=== PATIENT | female | born 1995 | race Caucasian/White ===

== ENCOUNTER 2017-06-29 16:43 | Inpatient (IN) | payer MEDICAID ==
[~2017-06-29] VITALS: Ht 162.6 cm; Wt 94.0 kg
[2017-06-29] MEDS ORDERED: normal saline 1000ML IV soln IVB ONE (17:20)
[2017-06-29 17:39] LABS: BASOPHILS % (AUTO) 0 % (0-1); EOSINOPHILS % (AUTO) 0 % (0-6); HEMATOCRIT 39.4 % (35.0-45.0); HEMOGLOBIN 13.3 g/dl (12.0-16.0); LYMPHOCYTES # (AUTO) 1.2 X10'3 (1.1-4.8); LYMPHOCYTES % (AUTO) 7.3 % (21-51); MEAN CORPUSCULAR HEMOGLOBIN 26.6 PG (27.0-31.0); MEAN CORPUSCULAR HGB CONC 33.8 % (33.0-36.5); MEAN CORPUSCULAR VOLUME 78.6 FL (78-98); MEAN PLATELET VOLUME 8.8 FL (7.4-10.4); MONOCYTES # (AUTO) 0.5 X10'3 (0-0.9); MONOCYTES % (AUTO) 3.3 % (2-12); NEUTROPHILS # (AUTO) 14.4 X10'3 (1.8-7.7); NEUTROPHILS % (AUTO) 89.4 % (42-75); PLATELET COUNT 385 X10'3 (140-440); RED BLOOD COUNT 5.01 X10'6 (4.20-5.60); RED CELL DISTRIBUTION WIDTH 16.2 % (11.5-14.5); WHITE BLOOD COUNT 16.1 X10'3 (4.5-11.0)
[2017-06-29 17:46] LABS: PROTHROMBIN TIME 10.7 SECONDS (9.0-12.0)
[2017-06-29 17:50] LABS: HCG SERUM QL NEGATIVE
[2017-06-29 18:00] LABS: ANION GAP 21 (8-16); BILIRUBIN,TOTAL 1.9 MG/DL (0.1-1.0); BLOOD UREA NITROGEN 19 MG/DL (7-18); BUN/CREATININE RATIO 17.6 (6.6-38.0); CALCIUM 9.6 MG/DL (8.5-10.1); CHLORIDE 96 MMOL/L (99-107); CREATININE 1.08 MG/DL (0.40-0.90); GLUCOSE 399 MG/DL (70-104); POTASSIUM 4.6 MMOL/L (3.5-5.1); SODIUM 133 MMOL/L (135-145); TOTAL CARBON DIOXIDE 15.8 MMOL/L (24-32); eGFR 65 ML/MIN
[2017-06-29 18:01] LABS: ALANINE AMINOTRANSFERASE 14 U/L (12-78); ALBUMIN 3.9 G/DL (3.4-5.0); ALKALINE PHOSPHATASE 158 IU/L (20-180); ASPARTATE AMINO TRANSFERASE 9 U/L (10-37); ETHANOL < 0.010 GM/DL (0.0-0.010)
[2017-06-29 18:30] LABS: CLARITY,URINE CLOUDY (Clear); COLOR,URINE YELLOW (Yellow); GLUCOSE, URINE >=1000 mg/dl (Neg); KETONES,URINE >=80 mg/dl (Neg); LEUKOCYTE ESTERASE ,URINE NEGATIVE (Neg); NITRITES, URINE NEGATIVE (Neg); OCCULT BLOOD,URINE TRACE-INTACT (Neg); PH,URINE 5.5 (4.8-8.0); PROTEIN,URINE NEGATIVE (Neg); UROBILINOGEN,URINE 0.2 E.U/dL (0.2-1.0)
[2017-06-29 18:43] LABS: URINE AMPHETAMINE SCREEN NEGATIVE (Neg); URINE BARBITUATE SCREEN NEGATIVE (Neg); URINE BENZODIAZEPINES SCREEN NEGATIVE (Neg); URINE CANNABINOID SCREEN NEGATIVE (Neg); URINE COCAINE SCREEN NEGATIVE (Neg); URINE METHADONE SCREEN NEGATIVE (Neg); URINE OPIATE SCREEN NEGATIVE (Neg); URINE PHENCYCLIDINE SCREEN NEGATIVE (Neg)
[2017-06-29 18:55] LABS: UA COLLECTION TYPE STRAIGHT CATH
[2017-06-29 18:58] LABS: BACTERIA,URINE FEW /HPF (Neg); MUCUS STRANDS FEW /LPF (Neg); RBC,URINE 0-2 /HPF (0-2); SQUAMOUS EPITHELIAL CELL,UR MODERATE /LPF (FEW); WBC,URINE 0-4 /HPF (0-4)
[2017-06-29 19:00] LABS: HYALINE CASTS 0-3 /LPF (NEGATIVE)
[2017-06-29 19:02] LABS: AMORPHOUS URATES 2+
[2017-06-29 19:21] LABS: ABG BASE EXCESS -10.7 mmol/L (-2.0-3.0); ABG HCO3 14.1 mmol/L (22.0-26.0); ABG OXYGEN SATURATION 96.5 % (95-98); ABG PCO2 (T) 28.1 mmHg (32.0-45.0); ABG PH (T) 7.317 (7.350-7.450); ABG PO2 (T) 90.1 mmHg (83-108); ALLEN'S TEST Positive; FCOHb 0.6 % (0.5-1.5); FMetHb 0.2 % (0.3-1.12); FO2Hb 95.7 % (94-100); PATIENT TEMPERATURE 36.8; RESPIRATORY RATE (OBSERVED) 16 b/min; TOTAL HEMOGLOBIN 12.5 G/dl (12.0-16.0)
[2017-06-29] MEDS ORDERED: meclizine 12.5mg tablet PO ONE (19:35)
[2017-06-29] MEDS ORDERED: SERT25TA PO (19:40)
[2017-06-29] MEDS ORDERED: magnesium hydroxide 30ml (MOM) UD suspension PO PRN ×2 (21:30→21:35)
[2017-06-29] MEDS ORDERED: mag hydrox/Alum hydrox/simeth 30ml oral suspension PO PRN ×2 (21:30→21:35)
[2017-06-29] MEDS ORDERED: acetaminophen 325mg tablet PO PRN ×2 (21:30→21:35)
[2017-06-29] MEDS ORDERED: ondansetron/PF 4mg/2ml inj IV PRN ×2 (21:30→21:35)
[2017-06-29] MEDS ORDERED: normal saline 1000ml 1,000 ML IVB ONE (22:32)
[2017-06-29] MEDS: sodium chloride 0.45% 1,000 ML IV SCH (22:35)
[2017-06-29] MEDS ORDERED: morphine 4 MG/ML inj SYRINge IM PRN (22:40)
[2017-06-29] MEDS ORDERED: ketorolac tromethamine 15mg/ml inj. IV PRN (22:40)
[2017-06-29 23:19] LABS: ALANINE AMINOTRANSFERASE 13 U/L (12-78); ALBUMIN 3.5 G/DL (3.4-5.0); ALBUMIN/GLOBULIN RATIO 0.9 (1.1-1.5); ALKALINE PHOSPHATASE 139 IU/L (20-180); ANION GAP 17 (8-16); ASPARTATE AMINO TRANSFERASE 10 U/L (10-37); BILIRUBIN,TOTAL 1.5 MG/DL (0.1-1.0); BLOOD UREA NITROGEN 14 MG/DL (7-18); BUN/CREATININE RATIO 18.7 (6.6-38.0); CALCIUM 8.5 MG/DL (8.5-10.1); CHLORIDE 102 MMOL/L (99-107); CREATININE 0.75 MG/DL (0.40-0.90); GLUCOSE 252 MG/DL (70-104); LIPASE 59 U/L (73-393); MAGNESIUM 1.9 MG/DL (1.5-2.4); PHOSPHORUS 4.4 MG/DL (2.3-4.5); POTASSIUM 4.4 MMOL/L (3.5-5.1); SODIUM 137 MMOL/L (135-145); TOTAL CARBON DIOXIDE 18.3 MMOL/L (24-32); TOTAL PROTEIN 7.3 G/DL (6.4-8.2); TROPONIN I < 0.04 NG/ML (0.0-0.05); eGFR > 90 ML/MIN
[2017-06-29] MEDS: pantoprazole 40 MG vial IV SCH (23:22)
[2017-06-30] MEDS: sodium chloride 0.45% 1,000 ML IV SCH (05:16)
[2017-06-30 07:20] VITALS: BP 128/61
[2017-06-30] MEDS: pantoprazole 40 MG vial IV SCH (09:39)
[2017-06-30 10:00] VITALS: BP 118/55
[2017-06-30] MEDS ORDERED: pneumococcal 23-VAL P-sac vacc 25 mcg/0.5ml vial IMVAC ONE (11:50)
[2017-06-30] MEDS ORDERED: FLU VACC QS2017-18 36MOS UP/PF 60 MCG/0.5 ML SYRINGE IMVAC ONE (11:50)
[2017-06-30] MEDS ORDERED: dextrose ORAL solution 15 GM/59 ML bottle PO PRN ×4 (12:55→15:25)
[2017-06-30] MEDS ORDERED: insulin Lispro (HumaLOG) vial - multi-dose SQ SCH ×2 (12:55→15:25)
[2017-06-30] MEDS ORDERED: glucagon, human recombinant 1mg kit SUBCUT PRN ×2 (12:55→15:25)
[2017-06-30] MEDS ORDERED: dextrose 50%-water 50ml dispensing syringe IV PRN ×4 (12:55→15:25)
[2017-06-30] MEDS ORDERED: potassium CL 20mEq in D5-1/2NS 1,000 ML IV PRN ×2 (13:44→13:45)
[2017-06-30] MEDS ORDERED: normal saline 1000ml 1,000 ML IV SCH ×2 (13:44→13:45)
[2017-06-30] MEDS ORDERED: insulin regular, DKA only 100 UNIT in normal saline 100ml IV soln 99 ML IV SCH ×4 (13:44→13:45)
[2017-06-30] MEDS ORDERED: sodium bicarbonate (8.4%) inj. 100 MEQ in sodium chloride 0.45% 500ml 500 ML IV PRN ×2 (13:44→13:45)
[2017-06-30] MEDS: normal saline 1000ml 1,000 ML IV SCH ×5 (13:44→19:35)
[2017-06-30] MEDS ORDERED: sodium bicarbonate (8.4%) inj. 50 MEQ in sodium chloride 0.45% 500ml 250 ML IV PRN ×2 (13:44→13:45)
[2017-06-30] MEDS: K and/or MAG REPLACEMENT MC SCH (13:45)
[2017-06-30] MEDS ORDERED: potassium Cl 40MEQ/NS 500ml 500 ML IV PRN ×4 (13:45)
[2017-06-30] MEDS ORDERED: sodium phosphate inj. 15 MMOL in dextrose 5%-water 150 ML IV PRN (13:45)
[2017-06-30] MEDS ORDERED: sodium phosphate inj. 30 MMOL in dextrose 5%-water 250 ML IV PRN (13:45)
[2017-06-30] MEDS ORDERED: insulin regular, human 10 units/0.1 ml syringe SQ PRN ×2 (13:45)
[2017-06-30] MEDS ORDERED: Neutra Phos packet PO PRN (13:45)
[2017-06-30] MEDS ORDERED: potassium Cl 20 mEq SR tablet PO PRN ×4 (13:45)
[2017-06-30 14:45] LABS: GLUCOSE 310 MG/DL (70-104); SODIUM 138 MMOL/L (135-145)
[2017-06-30 14:46] LABS: ALANINE AMINOTRANSFERASE 12 U/L (12-78); ALBUMIN 3.1 G/DL (3.4-5.0); ALBUMIN/GLOBULIN RATIO 0.9 (1.1-1.5); ALKALINE PHOSPHATASE 118 IU/L (20-180); ANION GAP 12 (8-16); ASPARTATE AMINO TRANSFERASE 14 U/L (10-37); BILIRUBIN,DIRECT 0.2 MG/DL (0-0.3); BILIRUBIN,TOTAL 1.1 MG/DL (0.1-1.0); BLOOD UREA NITROGEN 11 MG/DL (7-18); BUN/CREATININE RATIO 10.2 (6.6-38.0); CALCIUM 8.5 MG/DL (8.5-10.1); CHLORIDE 105 MMOL/L (99-107); CREATININE 1.08 MG/DL (0.40-0.90); PHOSPHORUS 2.7 MG/DL (2.3-4.5); POTASSIUM 4.1 MMOL/L (3.5-5.1); TOTAL CARBON DIOXIDE 21.3 MMOL/L (24-32); TOTAL PROTEIN 6.6 G/DL (6.4-8.2); eGFR 65 ML/MIN
[2017-06-30 14:51] LABS: BASOPHILS % (AUTO) 0.2 % (0-1); EOSINOPHILS # (AUTO) 0.1 X10'3 (0-0.9); EOSINOPHILS % (AUTO) 1.4 % (0-6); HEMATOCRIT 32.5 % (35.0-45.0); HEMOGLOBIN 11.2 g/dl (12.0-16.0); LYMPHOCYTES # (AUTO) 2.2 X10'3 (1.1-4.8); LYMPHOCYTES % (AUTO) 23.7 % (21-51); MEAN CORPUSCULAR HGB CONC 34.5 % (33.0-36.5); MEAN CORPUSCULAR VOLUME 78.3 FL (78-98); MEAN PLATELET VOLUME 8.7 FL (7.4-10.4); MONOCYTES # (AUTO) 0.6 X10'3 (0-0.9); NEUTROPHILS # (AUTO) 6.5 X10'3 (1.8-7.7); NEUTROPHILS % (AUTO) 68.7 % (42-75); PLATELET COUNT 304 X10'3 (140-440); RED BLOOD COUNT 4.15 X10'6 (4.20-5.60); RED CELL DISTRIBUTION WIDTH 16.2 % (11.5-14.5); WHITE BLOOD COUNT 9.4 X10'3 (4.5-11.0)
[2017-06-30 15:14] LABS: CLARITY,URINE Clear (Clear); COLOR,URINE Yellow (Yellow); GLUCOSE, URINE >=1000 mg/dl (Neg); KETONES,URINE Negative (Neg); LEUKOCYTE ESTERASE ,URINE Negative (Neg); NITRITES, URINE Negative (Neg); OCCULT BLOOD,URINE Negative (Neg); PROTEIN,URINE Negative (Neg); UROBILINOGEN,URINE 0.2 E.U/dL (0.2-1.0)
[2017-06-30 15:16] LABS: UA COLLECTION TYPE CLN CATCH MIDSTREAM
[2017-06-30 15:21] LABS: BACTERIA,URINE 1+ /HPF (Neg); MUCUS STRANDS NONE SEEN /LPF (Neg); RBC,URINE NONE SEEN /HPF (0-2); SQUAMOUS EPITHELIAL CELL,UR FEW /LPF (FEW); WBC,URINE NONE SEEN /HPF (0-4)
[2017-06-30] MEDS ORDERED: MESSAGE TO PHARMACY PO ONE (15:25)
[2017-06-30] MEDS ORDERED: insulin regular, human vial - multi-dose SQ SCH (15:25)
[2017-06-30 18:00] VITALS: BP 118/61
[2017-06-30] MEDS ORDERED: insulin glargine (Lantus) pen - multi-dose SQ SCH ×2 (21:00)
[2017-06-30] MEDS ORDERED: sertraline 50mg tablet PO SCH (21:00)
[2017-06-30] MEDS: ciprofloxacin 250mg tablet PO SCH (21:31)
[2017-06-30 22:00] VITALS: BP 132/65
[2017-06-30] MEDS ORDERED: insulin pump (22:00)
[2017-07-01] MEDS: normal saline 1000ml 1,000 ML IV SCH ×2 (01:25→05:38)
[2017-07-01 05:59] LABS: BASOPHILS % (AUTO) 0.1 % (0-1); EOSINOPHILS # (AUTO) 0.2 X10'3 (0-0.9); EOSINOPHILS % (AUTO) 1.9 % (0-6); HEMATOCRIT 32.6 % (35.0-45.0); HEMOGLOBIN 10.9 g/dl (12.0-16.0); LYMPHOCYTES # (AUTO) 3.1 X10'3 (1.1-4.8); LYMPHOCYTES % (AUTO) 35.8 % (21-51); MEAN CORPUSCULAR HEMOGLOBIN 26.7 PG (27.0-31.0); MEAN CORPUSCULAR HGB CONC 33.5 % (33.0-36.5); MEAN CORPUSCULAR VOLUME 79.8 FL (78-98); MEAN PLATELET VOLUME 8.2 FL (7.4-10.4); MONOCYTES # (AUTO) 0.7 X10'3 (0-0.9); MONOCYTES % (AUTO) 7.7 % (2-12); NEUTROPHILS # (AUTO) 4.8 X10'3 (1.8-7.7); NEUTROPHILS % (AUTO) 54.5 % (42-75); PLATELET COUNT 318 X10'3 (140-440); RED BLOOD COUNT 4.08 X10'6 (4.20-5.60); RED CELL DISTRIBUTION WIDTH 16.6 % (11.5-14.5); WHITE BLOOD COUNT 8.7 X10'3 (4.5-11.0)
[2017-07-01 06:00] VITALS: BP 129/64
[2017-07-01 07:03] LABS: GLUCOSE 234 MG/DL (70-104)
[2017-07-01 07:04] LABS: ALANINE AMINOTRANSFERASE 17 U/L (12-78); ALBUMIN 2.9 G/DL (3.4-5.0); ALBUMIN/GLOBULIN RATIO 0.9 (1.1-1.5); ALKALINE PHOSPHATASE 131 IU/L (20-180); ANION GAP 13 (8-16); ASPARTATE AMINO TRANSFERASE 10 U/L (10-37); BILIRUBIN,TOTAL 0.3 MG/DL (0.1-1.0); BLOOD UREA NITROGEN 14 MG/DL (7-18); BUN/CREATININE RATIO 18.4 (6.6-38.0); CHLORIDE 106 MMOL/L (99-107); CREATININE 0.76 MG/DL (0.40-0.90); MAGNESIUM 1.7 MG/DL (1.5-2.4); PHOSPHORUS 4.4 MG/DL (2.3-4.5); POTASSIUM 3.8 MMOL/L (3.5-5.1); SODIUM 142 MMOL/L (135-145); TOTAL CARBON DIOXIDE 22.8 MMOL/L (24-32); TOTAL PROTEIN 6.1 G/DL (6.4-8.2); eGFR > 90 ML/MIN
[2017-07-01] MEDS: pantoprazole 40 MG vial IV SCH (07:52)
[2017-07-01] MEDS: insulin pump.resvr SQ SCH ×2 (07:56→12:00)
[2017-07-01] MEDS: K and/or MAG REPLACEMENT MC SCH (08:00)
[2017-07-01 10:30] VITALS: BP 128/66
[2017-07-01] MEDS: ciprofloxacin 250mg tablet PO SCH (11:06)
[2017-07-01] MEDS ORDERED: CIPR250T4 PO (13:39)
[2017-07-01] MEDS ORDERED: PANT40TA4 PO (13:39)
[2017-07-02] MEDS ORDERED: pantoprazole 40mg Tablet.DR PO SCH (07:30)
== END 2017-07-01 14:30 | disposition home or self-care (01) | DRG 420 ==
LOC: ER 16:44 → ED HOLD 21:28 → ORTHO 4S 06-30 07:18
PROVIDERS: ADMIT Family Medicine; ATTEND Family Medicine
DX: E10.10 Type 1 diabetes mellitus with ketoacidosis without coma (principal); N39.0 Urinary tract infection, site not specified; E86.0 Dehydration; Z96.41 Presence of insulin pump (external) (internal); F32.9 Major depressive disorder, single episode, unspecified; Z79.4 Long term (current) use of insulin
CPT/HCPCS: 36415; 36600; 70450; 71045; 80048; 80053; 80076; 80305; 80320; 81001; 82009; 82803; 82948; 83036; 83690; 83735; 83880; 84100; 84443; 84484; 84703; 85018; 85025; 85610; 87070; 93005; 96360; 99285; C9113; J1815; J7030; J8597

== ENCOUNTER 2018-02-22 18:47 | Emergency (ER) | payer MEDICAID ==
[~2018-02-22] VITALS: Ht 162.6 cm; Wt 88.0 kg
[~2018-02-22 18:47] MED LIST: CIPR250T4 PO; PANT40TA4 PO; SERT25TA PO; insulin pump
[2018-02-22 19:29] LABS: CLARITY,URINE CLEAR (Clear); COLOR,URINE YELLOW (Yellow); GLUCOSE, URINE 250 mg/dl (Neg); KETONES,URINE NEGATIVE (Neg); LEUKOCYTE ESTERASE ,URINE NEGATIVE (Neg); NITRITES, URINE NEGATIVE (Neg); OCCULT BLOOD,URINE NEGATIVE (Neg); PH,URINE 7.5 (4.8-8.0); PROTEIN,URINE NEGATIVE (Neg); UROBILINOGEN,URINE 0.2 E.U/dL (0.2-1.0)
[2018-02-22 19:37] LABS: UA COLLECTION TYPE CLN CATCH MIDSTREAM
[2018-02-22 19:41] LABS: URINE AMPHETAMINE SCREEN NEGATIVE (Neg); URINE BARBITUATE SCREEN NEGATIVE (Neg); URINE BENZODIAZEPINES SCREEN NEGATIVE (Neg); URINE CANNABINOID SCREEN NEGATIVE (Neg); URINE COCAINE SCREEN NEGATIVE (Neg); URINE METHADONE SCREEN NEGATIVE (Neg); URINE OPIATE SCREEN POSITIVE (Neg); URINE PHENCYCLIDINE SCREEN NEGATIVE (Neg)
[2018-02-22 19:48] LABS: BASOPHILS % (AUTO) 0.3 % (0-1); EOSINOPHILS # (AUTO) 0.2 X10'3 (0-0.9); HEMATOCRIT 33.7 % (35.0-45.0); LYMPHOCYTES # (AUTO) 1.8 X10'3 (1.1-4.8); LYMPHOCYTES % (AUTO) 21.9 % (21-51); MEAN CORPUSCULAR HEMOGLOBIN 26.3 PG (27.0-31.0); MEAN CORPUSCULAR HGB CONC 32.6 % (33.0-36.5); MEAN CORPUSCULAR VOLUME 80.7 FL (78-98); MEAN PLATELET VOLUME 8.3 FL (7.4-10.4); MONOCYTES # (AUTO) 0.6 X10'3 (0-0.9); MONOCYTES % (AUTO) 7.3 % (2-12); NEUTROPHILS # (AUTO) 5.7 X10'3 (1.8-7.7); NEUTROPHILS % (AUTO) 68.5 % (42-75); PLATELET COUNT 317 X10'3 (140-440); RED BLOOD COUNT 4.18 X10'6 (4.20-5.60); RED CELL DISTRIBUTION WIDTH 15.4 % (11.5-14.5); WHITE BLOOD COUNT 8.3 X10'3 (4.5-11.0)
[2018-02-22 20:02] LABS: ALANINE AMINOTRANSFERASE 15 U/L (12-78); ALBUMIN 3.2 G/DL (3.4-5.0); ALKALINE PHOSPHATASE 126 IU/L (20-180); ANION GAP 9 (8-16); ASPARTATE AMINO TRANSFERASE 13 U/L (10-37); BILIRUBIN,TOTAL 0.3 MG/DL (0.1-1.0); BLOOD UREA NITROGEN 9 MG/DL (7-18); BUN/CREATININE RATIO 10.2 (6.6-38.0); CALCIUM 8.3 MG/DL (8.5-10.1); CHLORIDE 103 MMOL/L (99-107); CREATININE 0.88 MG/DL (0.40-0.90); GLUCOSE 197 MG/DL (70-104); POTASSIUM 3.3 MMOL/L (3.5-5.1); SODIUM 139 MMOL/L (135-145); TOTAL CARBON DIOXIDE 26.9 MMOL/L (24-32); TOTAL PROTEIN 6.5 G/DL (6.4-8.2); eGFR 82 ML/MIN
[2018-02-22] MEDS ORDERED: BUPR150T8 PO (20:02)
[2018-02-22] MEDS ORDERED: SERT100T PO (20:02)
[2018-02-22 20:11] LABS: ETHANOL < 0.010 GM/DL (0.0-0.010)
[2018-02-22] MEDS ORDERED: MESSAGE TO PHARMACY PO ONE (20:45)
[2018-02-22] MEDS ORDERED: glucagon, human recombinant 1mg kit SUBCUT PRN (20:45)
[2018-02-22] MEDS ORDERED: dextrose ORAL solution 15 GM/59 ML bottle PO PRN ×2 (20:45)
[2018-02-22] MEDS ORDERED: insulin Lispro (HumaLOG) vial - multi-dose SQ SCH (20:45)
[2018-02-22] MEDS ORDERED: dextrose 50%-water 50ml dispensing syringe IV PRN ×2 (20:45)
[2018-02-22] MEDS: insulin glargine (Lantus) pen - multi-dose SQ SCH (21:00)
[2018-02-22 21:20] LABS: HEMOGLOBIN A1C 9.8 % (4.5-6.2)
[2018-02-22 22:59] LABS: URINE HCG NEGATIVE (NEG)
[2018-02-23] MEDS ORDERED: buPROPion SR 150mg tablet PO ONE (00:10)
[2018-02-23] MEDS ORDERED: sertraline 50mg tablet PO ONE (00:10)
[2018-02-23] MEDS ORDERED: topiramate 100mg tablet PO ONE (01:53)
[2018-02-23] MEDS ORDERED: clonazePAM 0.5mg tablet PO SCH (01:54)
[2018-02-23] MEDS: insulin Lispro (HumaLOG) vial - multi-dose SQ SCH ×3 (13:37→21:05)
[2018-02-23] MEDS: sertraline 50mg tablet PO SCH (21:03)
[2018-02-23] MEDS: buPROPion SR 150mg tablet PO SCH (21:03)
[2018-02-23] MEDS: insulin glargine (Lantus) pen - multi-dose SQ SCH (21:08)
[2018-02-24] MEDS: insulin Lispro (HumaLOG) vial - multi-dose SQ SCH ×3 (09:10→19:19)
[2018-02-24] MEDS: buPROPion SR 150mg tablet PO SCH (20:38)
[2018-02-24] MEDS: sertraline 50mg tablet PO SCH (20:38)
[2018-02-24] MEDS: insulin glargine (Lantus) pen - multi-dose SQ SCH (21:27)
[2018-02-25] MEDS: insulin Lispro (HumaLOG) vial - multi-dose SQ SCH ×4 (07:47→19:11)
[2018-02-25] MEDS: buPROPion SR 150mg tablet PO SCH (21:05)
[2018-02-25] MEDS: sertraline 50mg tablet PO SCH (21:05)
[2018-02-25] MEDS: insulin glargine (Lantus) pen - multi-dose SQ SCH (21:11)
[2018-02-26] MEDS ORDERED: insulin regular, human 10 units/0.1 ml syringe SQ ONE (06:45)
[2018-02-26] MEDS: insulin Lispro (HumaLOG) vial - multi-dose SQ SCH ×2 (06:53→08:48)
[2018-02-26 10:11] VITALS: BP 13/132
== END 2018-02-26 10:35 | disposition home or self-care (01) ==
LOC: ER 18:48
DX: F32.9 Major depressive disorder, single episode, unspecified (principal); R45.851 Suicidal ideations; E10.9 Type 1 diabetes mellitus without complications; Z79.899 Other long term (current) drug therapy
CPT/HCPCS: 36415; 80053; 80305; 80320; 81003; 81025; 82948; 83036; 84443; 85025; 96372; 99285; J1815

== ENCOUNTER 2018-04-21 15:07 | Emergency (ER) | payer MEDICAID ==
[~2018-04-21] VITALS: Ht 162.6 cm; Wt 90.0 kg
[~2018-04-21 15:07] MED LIST changes: +BUPR150T8 PO; -CIPR250T4 PO; -PANT40TA4 PO; +SERT100T PO; -SERT25TA PO
[2018-04-21 16:22] LABS: BASOPHILS % (AUTO) 0.1 % (0-1); EOSINOPHILS # (AUTO) 0.2 X10'3 (0-0.9); EOSINOPHILS % (AUTO) 1.5 % (0-6); HEMATOCRIT 39.5 % (35.0-45.0); HEMOGLOBIN 12.7 g/dl (12.0-16.0); LYMPHOCYTES # (AUTO) 0.9 X10'3 (1.1-4.8); LYMPHOCYTES % (AUTO) 6.7 % (21-51); MEAN CORPUSCULAR HEMOGLOBIN 26.3 PG (27.0-31.0); MEAN CORPUSCULAR HGB CONC 32.2 % (33.0-36.5); MEAN CORPUSCULAR VOLUME 81.4 FL (78-98); MONOCYTES # (AUTO) 0.3 X10'3 (0-0.9); MONOCYTES % (AUTO) 2.2 % (2-12); NEUTROPHILS % (AUTO) 89.5 % (42-75); PLATELET COUNT 418 X10'3 (140-440); RED BLOOD COUNT 4.85 X10'6 (4.20-5.60); RED CELL DISTRIBUTION WIDTH 15.2 % (11.5-14.5); WHITE BLOOD COUNT 13.4 X10'3 (4.5-11.0)
[2018-04-21 16:39] LABS: ALANINE AMINOTRANSFERASE 19 U/L (12-78); ALBUMIN 4.1 G/DL (3.4-5.0); ALBUMIN/GLOBULIN RATIO 1.1 (1.1-1.5); ALKALINE PHOSPHATASE 195 IU/L (20-180); ANION GAP 20 (8-16); ASPARTATE AMINO TRANSFERASE 17 U/L (10-37); BILIRUBIN,TOTAL 1.7 MG/DL (0.1-1.0); BLOOD UREA NITROGEN 20 MG/DL (7-18); BUN/CREATININE RATIO 17.7 (6.6-38.0); CALCIUM 9.5 MG/DL (8.5-10.1); CHLORIDE 92 MMOL/L (99-107); CREATININE 1.13 MG/DL (0.40-0.90); POTASSIUM 5.2 MMOL/L (3.5-5.1); SODIUM 129 MMOL/L (135-145); TOTAL CARBON DIOXIDE 16.8 MMOL/L (24-32); TOTAL PROTEIN 7.9 G/DL (6.4-8.2); eGFR 61 ML/MIN
[2018-04-21 16:49] LABS: GLUCOSE 554 MG/DL (70-104)
[2018-04-21] MEDS ORDERED: insulin regular, human 10 units/0.1 ml syringe SQ ONE (18:30)
[2018-04-21] MEDS ORDERED: normal saline 1000ML IV soln IVB ONE ×2 (18:30)
[2018-04-21] MEDS ORDERED: insulin regular, human 10 units/0.1 ml syringe IV ONE (18:30)
[2018-04-21] MEDS ORDERED: diphenhydrAMINE 50 mg/ml inj IV ONE (18:35)
[2018-04-21] MEDS ORDERED: metoclopramide 5 mg/ml inj IV ONE (18:35)
[2018-04-21] MEDS ORDERED: insulin Lispro (HumaLOG) vial - multi-dose SQ ONE (19:50)
[2018-04-21 20:55] VITALS: BP 100/78
== END 2018-04-21 20:58 | disposition home or self-care (01) ==
LOC: ER 15:07
DX: E10.65 Type 1 diabetes mellitus with hyperglycemia (principal); E86.0 Dehydration; R11.10 Vomiting, unspecified; R07.89 Other chest pain; R51 Headache; R42 Dizziness and giddiness; R06.02 Shortness of breath; Z79.899 Other long term (current) drug therapy
CPT/HCPCS: 36415; 80053; 82948; 85025; 96361; 96372; 96374; 96375; 99283; J1200; J1815; J2765; J7030

== ENCOUNTER 2020-03-07 12:40 | Emergency (ER) | payer MEDICAID ==
[~2020-03-07] VITALS: Ht 162.6 cm; Wt 100.0 kg
[2020-03-07 13:15] LABS: BASOPHILS # (AUTO) 0.1 X10'3 (0-0.2); BASOPHILS % (AUTO) 0.4 % (0-1); EOSINOPHILS % (AUTO) 0.2 % (0-6); HEMATOCRIT 42.9 % (35.0-45.0); HEMOGLOBIN 14.1 g/dl (12.0-16.0); LYMPHOCYTES % (AUTO) 7.6 % (21-51); MEAN CORPUSCULAR HEMOGLOBIN 27.9 PG (27.0-31.0); MEAN CORPUSCULAR HGB CONC 32.9 g/dL (33.0-36.5); MEAN CORPUSCULAR VOLUME 84.8 FL (78-98); MEAN PLATELET VOLUME 8.7 FL (7.4-10.4); MONOCYTES # (AUTO) 0.3 X10'3 (0-0.9); MONOCYTES % (AUTO) 2.6 % (2-12); NEUTROPHILS # (AUTO) 11.9 X10'3 (1.8-7.7); NEUTROPHILS % (AUTO) 89.2 % (42-75); PLATELET COUNT 359 X10'3 (140-440); RED BLOOD COUNT 5.06 X10'6 (4.20-5.60); WHITE BLOOD COUNT 13.3 X10'3 (4.5-11.0)
[2020-03-07 13:28] LABS: ALANINE AMINOTRANSFERASE 20 U/L (12-78); ALBUMIN 4.2 G/DL (3.4-5.0); ALBUMIN/GLOBULIN RATIO 1.1 (1.1-1.5); ALKALINE PHOSPHATASE 205 IU/L (46-116); ANION GAP 16 (8-16); ASPARTATE AMINO TRANSFERASE 12 U/L (10-37); BILIRUBIN,TOTAL 1.1 MG/DL (0.1-1.0); BLOOD UREA NITROGEN 18 MG/DL (7-18); BUN/CREATININE RATIO 17.6 (6.6-38.0); CALCIUM 9.3 MG/DL (8.5-10.1); CHLORIDE 98 MMOL/L (99-107); CREATININE 1.02 MG/DL (0.40-0.90); GLUCOSE 335 MG/DL (70-104); LIPASE 72 U/L (73-393); POTASSIUM 4.1 MMOL/L (3.5-5.1); SODIUM 134 MMOL/L (135-145); TOTAL CARBON DIOXIDE 19.9 MMOL/L (24-32); TOTAL PROTEIN 8.2 G/DL (6.4-8.2); eGFR 68 ML/MIN
[2020-03-07 13:34] LABS: URINE HCG NEGATIVE (NEG)
[2020-03-07 13:40] LABS: CLARITY,URINE CLEAR (Clear); COLOR,URINE YELLOW (Yellow); GLUCOSE, URINE >=1000 mg/dl (Neg); KETONES,URINE >=80 mg/dl (Neg); LEUKOCYTE ESTERASE ,URINE NEGATIVE (Neg); NITRITES, URINE NEGATIVE (Neg); OCCULT BLOOD,URINE NEGATIVE (Neg); PH,URINE 5.5 (4.8-8.0); PROTEIN,URINE NEGATIVE (Neg); UROBILINOGEN,URINE 0.2 E.U/dL (0.2-1.0)
[2020-03-07] MEDS ORDERED: morphine 2 MG/ML inj. syringe IV PRN (13:45)
[2020-03-07] MEDS ORDERED: pantoprazole 40 MG vial IV ONE (13:45)
[2020-03-07] MEDS ORDERED: normal saline 1000ML IV soln IVB ONE (13:45)
[2020-03-07] MEDS ORDERED: ondansetron/PF 4mg/2ml inj IV ONE (13:45)
[2020-03-07 13:47] LABS: UA COLLECTION TYPE CLN CATCH MIDSTREAM
[2020-03-07 13:48] LABS: BACTERIA,URINE NONE SEEN /HPF (Neg); MUCUS STRANDS FEW /LPF (Neg); RBC,URINE 0-2 /HPF (0-2); SQUAMOUS EPITHELIAL CELL,UR FEW /LPF (FEW); WBC,URINE NONE SEEN /HPF (0-4)
[2020-03-07] MEDS ORDERED: ONDA8TAB13 PO (14:45)
[2020-03-07] MEDS ORDERED: PANT-47 PO (14:45)
[2020-03-07 16:59] VITALS: BP 108/63
== END 2020-03-07 16:55 | disposition home or self-care (01) ==
LOC: ER 12:40
DX: E10.65 Type 1 diabetes mellitus with hyperglycemia (principal); F41.9 Anxiety disorder, unspecified; F32.9 Major depressive disorder, single episode, unspecified; F12.90 Cannabis use, unspecified, uncomplicated; R11.10 Vomiting, unspecified; Z72.89 Other problems related to lifestyle; Z79.899 Other long term (current) drug therapy
CPT/HCPCS: 36415; 80053; 81001; 81025; 82009; 82948; 83690; 85025; 96361; 96374; 96375; 99285; C9113; J2405; J7030

== ENCOUNTER 2021-02-09 04:57 | Inpatient (IN) | payer MEDICAID ==
[~2021-02-09] VITALS: Ht 162.6 cm; Wt 100.0 kg
[~2021-02-09 04:57] MED LIST changes: +ONDA8TAB13 PO; +PANT-47 PO
[2021-02-09] MEDS ORDERED: insulin regular, human U-100 3ml vial - multi-dose IV ONE (05:30)
[2021-02-09] MEDS ORDERED: normal saline 1000ML IV soln IV ONE (05:30)
[2021-02-09 05:48] LABS: BASOPHILS % (AUTO) 0.2 % (0-1); EOSINOPHILS % (AUTO) 0.1 % (0-6); HEMATOCRIT 43.2 % (35.0-45.0); HEMOGLOBIN 13.4 g/dl (12.0-16.0); LYMPHOCYTES # (AUTO) 1.9 X10'3 (1.1-4.8); LYMPHOCYTES % (AUTO) 8.9 % (21-51); MEAN CORPUSCULAR HEMOGLOBIN 28.6 PG (27.0-31.0); MEAN CORPUSCULAR VOLUME 92.3 FL (78-98); MEAN PLATELET VOLUME 8.7 FL (7.4-10.4); MONOCYTES % (AUTO) 4.6 % (2-12); NEUTROPHILS # (AUTO) 18.4 X10'3 (1.8-7.7); NEUTROPHILS % (AUTO) 86.2 % (42-75); PLATELET COUNT 556 X10'3 (140-440); RED BLOOD COUNT 4.68 X10'6 (4.20-5.60); RED CELL DISTRIBUTION WIDTH 16.1 % (11.5-14.5); WHITE BLOOD COUNT 21.3 X10'3 (4.5-11.0)
[2021-02-09] MEDS ORDERED: ondansetron/PF 4mg/2ml inj IV ONE (05:50)
[2021-02-09 06:16] LABS: ALANINE AMINOTRANSFERASE 45 U/L (12-78); ALBUMIN 4.1 G/DL (3.4-5.0); ALKALINE PHOSPHATASE 240 IU/L (46-116); ANION GAP 29 (8-16); ASPARTATE AMINO TRANSFERASE 27 U/L (10-37); BILIRUBIN,TOTAL 1.5 MG/DL (0.1-1.0); BLOOD UREA NITROGEN 23 MG/DL (7-18); BUN/CREATININE RATIO 17.3 (6.6-38.0); CALCIUM 9.4 MG/DL (8.5-10.1); CHLORIDE 94 MMOL/L (99-107); CREATININE 1.33 MG/DL (0.40-0.90); MAGNESIUM 2.4 MG/DL (1.5-2.4); PHOSPHORUS 5.8 MG/DL (2.3-4.5); SODIUM 133 MMOL/L (135-145); TOTAL PROTEIN 8.4 G/DL (6.4-8.2); eGFR 49 ML/MIN
[2021-02-09 06:25] LABS: GLUCOSE 658 MG/DL (70-104); TOTAL CARBON DIOXIDE 10.5 MMOL/L (24-32)
[2021-02-09 07:20] LABS: ABG BASE EXCESS -18.6 mmol/L (-2.0-2.0); ABG HCO3 8.8 mmol/L (22.0-26.0); ABG OXYGEN SATURATION 96.5 % (94-97); ALLEN'S TEST POSITIVE; FCOHb 0.3 % (0.0-3.9); FLOW 0 L/min; FMetHb 0.2 % (0.0-1.5); TOTAL HEMOGLOBIN 13.3 G/dl (12.0-16.0)
[2021-02-09] MEDS: Insulin Reg/NS 100units/100mL 100 ML IV PRN ×2 (07:30→17:40)
[2021-02-09 07:51] LABS: URINE HCG NEGATIVE (NEG)
[2021-02-09] MEDS ORDERED: Insulin Reg/NS 100units/100mL 100 ML IV SCH (07:55)
[2021-02-09] MEDS ORDERED: acetaminophen 325mg tablet PO PRN ×2 (07:55)
[2021-02-09] MEDS ORDERED: magnesium hydroxide 30ml (MOM) UD suspension PO PRN (07:55)
[2021-02-09] MEDS ORDERED: sodium bicarbonate (8.4%) inj. 100 MEQ in dextrose 5% water 500ml 500 ML IV PRN (07:55)
[2021-02-09] MEDS ORDERED: potassium Cl 40MEQ/1/2NS 520ml 520 ML IV PRN ×2 (07:55)
[2021-02-09] MEDS ORDERED: mag hydrox/Alum hydrox/simeth 30ml oral suspension PO PRN (07:55)
[2021-02-09] MEDS ORDERED: potassium CL 20mEq in D5-1/2NS 1,000 ML IV PRN (07:55)
[2021-02-09] MEDS ORDERED: sodium phosphate inj. 30 MMOL in dextrose 5%-water 250 ML IV PRN (07:55)
[2021-02-09] MEDS: normal saline 1000ml 1,000 ML IV SCH ×6 (07:55→23:55)
[2021-02-09] MEDS ORDERED: sodium bicarbonate (8.4%) inj. 50 MEQ in dextrose 5% water 500ml 250 ML IV PRN (07:55)
[2021-02-09] MEDS ORDERED: potassium Cl 20 mEq SR tablet PO PRN ×2 (07:55)
[2021-02-09] MEDS ORDERED: morphine 2 MG/ML inj. syringe IV PRN ×2 (07:55)
[2021-02-09] MEDS ORDERED: insulin regular, human U-100 3ml vial - multi-dose IV PRN (07:55)
[2021-02-09] MEDS ORDERED: ondansetron/PF 4mg/2ml inj IV PRN (07:55)
[2021-02-09] MEDS ORDERED: Neutra Phos packet PO PRN (07:55)
[2021-02-09] MEDS ORDERED: sodium phosphate inj. 15 MMOL in dextrose 5%-water 250 ML IV PRN (07:55)
[2021-02-09] MEDS: docusate sod 100mg capsule PO SCH ×2 (08:00→20:00)
[2021-02-09] MEDS: K and/or MAG REPLACEMENT MC SCH ×2 (08:00→20:00)
[2021-02-09 08:05] LABS: CLARITY,URINE SLIGHTLY CLOUDY (Clear); COLOR,URINE STRAW (Yellow); UA COLLECTION TYPE CLN CATCH MIDSTREAM
[2021-02-09 08:06] LABS: GLUCOSE, URINE >=1000 mg/dl (Neg); KETONES,URINE >=160 mg/dl (Neg); LEUKOCYTE ESTERASE ,URINE NEGATIVE (Neg); NITRITES, URINE NEGATIVE (Neg); OCCULT BLOOD,URINE LARGE (Neg); PROTEIN,URINE NEGATIVE (Neg); UROBILINOGEN,URINE 0.2 E.U/dL (0.2-1.0)
[2021-02-09 08:09] LABS: MUCUS STRANDS FEW /LPF (Neg); SQUAMOUS EPITHELIAL CELL,UR FEW /LPF (FEW)
[2021-02-09 08:10] LABS: BACTERIA,URINE FEW /HPF (Neg); RBC,URINE 0-2 /HPF (0-2); WBC,URINE 0-4 /HPF (0-4)
[2021-02-09 09:15] LABS: ALBUMIN 3.4 G/DL (3.4-5.0); ANION GAP 23 (8-16); BLOOD UREA NITROGEN 20 MG/DL (7-18); BUN/CREATININE RATIO 20.4 (6.6-38.0); CHLORIDE 106 MMOL/L (99-107); CREATININE 0.98 MG/DL (0.40-0.90); GLUCOSE 343 MG/DL (70-104); PHOSPHORUS 4.5 MG/DL (2.3-4.5); POTASSIUM 4.1 MMOL/L (3.5-5.1); SODIUM 139 MMOL/L (135-145); eGFR 70 ML/MIN
[2021-02-09 09:27] LABS: TOTAL CARBON DIOXIDE 9.8 MMOL/L (24-32)
--- NOTE | 2021-02-09 11:35 | NUR ---
Pt glucose 82 and pharmacy currently working on bicarb gtt with dextrose. Pt insulin placed on hold.
[2021-02-09] MEDS: sodium bicarbonate (8.4%) inj. 100 MEQ in dextrose 5%-water 1,000 ML IV SCH (11:52)
--- NOTE | 2021-02-09 11:55 | NUR ---
Hospitalist paged as pt glucose 82 and insulin gtt placed on hold
--- NOTE | 2021-02-09 12:15 | NUR ---
Reported to hospitalist Dr. Driscoll of pts trending glucose readings and insulin gtt currently on hold. Received VO to continue hold insuling gtt and to have BMP drawn now instead of 1400 for further eval of GAP and requirement of need for gtt.
[2021-02-09] MEDS ORDERED: INSU100V40 SQ (12:41)
[2021-02-09 13:23] LABS: ALBUMIN 3.3 G/DL (3.4-5.0); ANION GAP 15 (8-16); BLOOD UREA NITROGEN 15 MG/DL (7-18); BUN/CREATININE RATIO 16.5 (6.6-38.0); CALCIUM 8.1 MG/DL (8.5-10.1); CHLORIDE 109 MMOL/L (99-107); CREATININE 0.91 MG/DL (0.40-0.90); GLUCOSE 225 MG/DL (70-104); PHOSPHORUS 4.3 MG/DL (2.3-4.5); POTASSIUM 5.3 MMOL/L (3.5-5.1); SODIUM 142 MMOL/L (135-145); TOTAL CARBON DIOXIDE 17.6 MMOL/L (24-32); eGFR 77 ML/MIN
--- NOTE | 2021-02-09 14:09 | NUR ---
Hold Bicarb gtt per Dr. Driscoll.
[2021-02-09 16:37] LABS: ALANINE AMINOTRANSFERASE 37 U/L (12-78); ALBUMIN 3.2 G/DL (3.4-5.0); ALBUMIN/GLOBULIN RATIO 0.8 (1.1-1.5); ALKALINE PHOSPHATASE 170 IU/L (46-116); ANION GAP 21 (8-16); ASPARTATE AMINO TRANSFERASE 20 U/L (10-37); BILIRUBIN,TOTAL 1.4 MG/DL (0.1-1.0); BLOOD UREA NITROGEN 15 MG/DL (7-18); CHLORIDE 103 MMOL/L (99-107); GLUCOSE 410 MG/DL (70-104); SODIUM 136 MMOL/L (135-145); eGFR 69 ML/MIN
[2021-02-09 16:42] LABS: POTASSIUM 6.2 MMOL/L (3.5-5.1); TOTAL CARBON DIOXIDE 12.3 MMOL/L (24-32)
--- NOTE | 2021-02-09 16:47 | NUR ---
CALL BACK FROM DR MCGUIRE, INFORMED MD K 6.2, CO2 12.3, PER MD RESTART INSULIN DRIP. RN LASHANDA MADE AWARE.
[2021-02-09] MEDS ORDERED: sodium polystyrene sulfonate 15gm/60ml oral suspension PO ONE (16:50)
[2021-02-09 20:21] LABS: ALBUMIN 3.4 G/DL (3.4-5.0); ANION GAP 14 (8-16); BLOOD UREA NITROGEN 15 MG/DL (7-18); BUN/CREATININE RATIO 14.4 (6.6-38.0); CALCIUM 8.4 MG/DL (8.5-10.1); CHLORIDE 110 MMOL/L (99-107); CREATININE 1.04 MG/DL (0.40-0.90); GLUCOSE 121 MG/DL (70-104); POTASSIUM 4.3 MMOL/L (3.5-5.1); SODIUM 143 MMOL/L (135-145); TOTAL CARBON DIOXIDE 18.8 MMOL/L (24-32); eGFR 66 ML/MIN
--- NOTE | 2021-02-09 22:03 | NUR ---
1939 REPORT FROM JOSE PT IN DKA UNKNOWN STATUS WITH CORRECTION. 1947 PT'S BGL 131 WITH INSULIN GTT RUNNING AND NO MAINTANANCE FLUIDS. PT DENIES N/V REPORTS SHE WOULD LIKE TO DRINK WATER IF ABLE. PT PROVIDED ICE CHIPS. CONSULTED WITH CHARGE ON DKA PROTOCOL. AGREED TO HOLD INSULIN X 30 MIN, START D5 1/2NS AND RECHECK BGL. 2029 SECOND IV PLACED 2039 BGL RE-CHECKED, SPOKE AGAIN TO CHARGE, REQUESTED RE-DRAW FOR [employer], PT'S GAP CLOSED, K CORRECTED. WILL CONTINUE WITH HOURLY BGL CHECKS TO ENSURE PT IS REHYDRATED WITH FLUID AND CONTINUED INSULIN RUNNING. 2139- BGL IN THE 200'S FLUID INCREASED, WILL RECHECK, TIMED 2 HOUR BMT RE-ORDERED, LAB AWARE.
[2021-02-09 22:31] LABS: ALBUMIN 3.3 G/DL (3.4-5.0); ANION GAP 22 (8-16); BLOOD UREA NITROGEN 14 MG/DL (7-18); BUN/CREATININE RATIO 11.8 (6.6-38.0); CALCIUM 8.3 MG/DL (8.5-10.1); CHLORIDE 107 MMOL/L (99-107); CREATININE 1.19 MG/DL (0.40-0.90); GLUCOSE 242 MG/DL (70-104); POTASSIUM 4.1 MMOL/L (3.5-5.1); SODIUM 141 MMOL/L (135-145); eGFR 56 ML/MIN
[2021-02-09 22:36] LABS: TOTAL CARBON DIOXIDE 12.5 MMOL/L (24-32)
[2021-02-10] MEDS: normal saline 1000ml 1,000 ML IV SCH ×4 (00:10→10:09)
[2021-02-10 00:47] LABS: ALBUMIN 3.1 G/DL (3.4-5.0); ANION GAP 16 (8-16); BLOOD UREA NITROGEN 13 MG/DL (7-18); BUN/CREATININE RATIO 12.3 (6.6-38.0); CALCIUM 7.9 MG/DL (8.5-10.1); CHLORIDE 107 MMOL/L (99-107); CREATININE 1.06 MG/DL (0.40-0.90); GLUCOSE 164 MG/DL (70-104); POTASSIUM 4.3 MMOL/L (3.5-5.1); SODIUM 139 MMOL/L (135-145); TOTAL CARBON DIOXIDE 15.8 MMOL/L (24-32); eGFR 64 ML/MIN
[2021-02-10] MEDS: sodium bicarbonate (8.4%) inj. 100 MEQ in dextrose 5%-water 1,000 ML IV SCH ×3 (00:48→08:25)
[2021-02-10 02:12] LABS: BASOPHILS # (AUTO) 0.1 X10'3 (0-0.2); BASOPHILS % (AUTO) 0.8 % (0-1); EOSINOPHILS % (AUTO) 0.1 % (0-6); HEMATOCRIT 32.8 % (35.0-45.0); LYMPHOCYTES # (AUTO) 3.2 X10'3 (1.1-4.8); LYMPHOCYTES % (AUTO) 17.9 % (21-51); MEAN CORPUSCULAR HEMOGLOBIN 29.6 PG (27.0-31.0); MEAN CORPUSCULAR HGB CONC 33.6 g/dL (33.0-36.5); MEAN CORPUSCULAR VOLUME 87.9 FL (78-98); MEAN PLATELET VOLUME 7.5 FL (7.4-10.4); MONOCYTES # (AUTO) 1.3 X10'3 (0-0.9); MONOCYTES % (AUTO) 7.3 % (2-12); NEUTROPHILS # (AUTO) 13.1 X10'3 (1.8-7.7); NEUTROPHILS % (AUTO) 73.9 % (42-75); PLATELET COUNT 383 X10'3 (140-440); RED BLOOD COUNT 3.73 X10'6 (4.20-5.60); RED CELL DISTRIBUTION WIDTH 15.5 % (11.5-14.5); WHITE BLOOD COUNT 17.7 X10'3 (4.5-11.0)
[2021-02-10 02:23] LABS: ALBUMIN 2.9 G/DL (3.4-5.0); ANION GAP 12 (8-16); BLOOD UREA NITROGEN 12 MG/DL (7-18); BUN/CREATININE RATIO 11.4 (6.6-38.0); CALCIUM 7.9 MG/DL (8.5-10.1); CHLORIDE 109 MMOL/L (99-107); CREATININE 1.05 MG/DL (0.40-0.90); GLUCOSE 124 MG/DL (70-104); PHOSPHORUS 2.8 MG/DL (2.3-4.5); POTASSIUM 4.4 MMOL/L (3.5-5.1); SODIUM 139 MMOL/L (135-145); TOTAL CARBON DIOXIDE 18.1 MMOL/L (24-32); eGFR 65 ML/MIN
--- NOTE | 2021-02-10 03:30 | NUR ---
PT GIVEN SANDWICH AND JUICE, SITTING UP IN BED EATING, DENIES NAUSEA, WILL CONTINUE GTT AND RE-CHECK LABS AT 0400
[2021-02-10] MEDS ORDERED: insulin regular, human 10 units/0.1 ml syringe SQ ONE (04:25)
[2021-02-10 04:27] LABS: ALBUMIN 2.8 G/DL (3.4-5.0); ANION GAP 10 (8-16); BLOOD UREA NITROGEN 10 MG/DL (7-18); BUN/CREATININE RATIO 11.1 (6.6-38.0); CALCIUM 7.8 MG/DL (8.5-10.1); CHLORIDE 110 MMOL/L (99-107); GLUCOSE 99 MG/DL (70-104); POTASSIUM 3.9 MMOL/L (3.5-5.1); SODIUM 139 MMOL/L (135-145); eGFR 78 ML/MIN
[2021-02-10 06:23] LABS: ALBUMIN 2.8 G/DL (3.4-5.0); ANION GAP 10 (8-16); BLOOD UREA NITROGEN 10 MG/DL (7-18); BUN/CREATININE RATIO 11.5 (6.6-38.0); CALCIUM 7.6 MG/DL (8.5-10.1); CHLORIDE 108 MMOL/L (99-107); CREATININE 0.87 MG/DL (0.40-0.90); GLUCOSE 161 MG/DL (70-104); POTASSIUM 3.9 MMOL/L (3.5-5.1); SODIUM 135 MMOL/L (135-145); TOTAL CARBON DIOXIDE 17.3 MMOL/L (24-32); eGFR 81 ML/MIN
[2021-02-10] MEDS: K and/or MAG REPLACEMENT MC SCH ×2 (07:55→20:00)
[2021-02-10] MEDS: docusate sod 100mg capsule PO SCH ×2 (08:00→21:16)
[2021-02-10 09:03] LABS: ALBUMIN 2.8 G/DL (3.4-5.0); ANION GAP 12 (8-16); BLOOD UREA NITROGEN 8 MG/DL (7-18); CHLORIDE 110 MMOL/L (99-107); GLUCOSE 126 MG/DL (70-104); POTASSIUM 4.3 MMOL/L (3.5-5.1); SODIUM 140 MMOL/L (135-145); TOTAL CARBON DIOXIDE 18.1 MMOL/L (24-32); eGFR 89 ML/MIN
[2021-02-10] MEDS ORDERED: dextrose ORAL solution 15 GM/59 ML bottle PO PRN ×2 (10:35)
[2021-02-10] MEDS ORDERED: MESSAGE TO PHARMACY PO ONE (10:35)
[2021-02-10] MEDS ORDERED: glucagon, human recombinant 1mg kit SUBCUT PRN (10:35)
[2021-02-10] MEDS ORDERED: dextrose 50%-water 50ml dispensing syringe IV PRN ×2 (10:35)
[2021-02-10 14:40] LABS: ALBUMIN 2.9 G/DL (3.4-5.0); ANION GAP 11 (8-16); BLOOD UREA NITROGEN 7 MG/DL (7-18); BUN/CREATININE RATIO 8.4 (6.6-38.0); CHLORIDE 111 MMOL/L (99-107); CREATININE 0.83 MG/DL (0.40-0.90); GLUCOSE 80 MG/DL (70-104); POTASSIUM 3.8 MMOL/L (3.5-5.1); SODIUM 143 MMOL/L (135-145); eGFR 85 ML/MIN
--- NOTE | 2021-02-10 20:51 | NUR ---
WAITING FOR INSULIN FROM PHARMACY
[2021-02-10] MEDS ORDERED: insulin glargine (Lantus) pen - multi-dose SQ SCH (21:00)
[2021-02-10 21:01] LABS: ALBUMIN 3.1 G/DL (3.4-5.0); ANION GAP 19 (8-16); BLOOD UREA NITROGEN 13 MG/DL (7-18); CALCIUM 8.1 MG/DL (8.5-10.1); CHLORIDE 102 MMOL/L (99-107); CREATININE 0.93 MG/DL (0.40-0.90); GLUCOSE 448 MG/DL (70-104); POTASSIUM 4.6 MMOL/L (3.5-5.1); SODIUM 136 MMOL/L (135-145); TOTAL CARBON DIOXIDE 15.5 MMOL/L (24-32); eGFR 75 ML/MIN
[2021-02-10] MEDS: insulin Lispro (HumaLOG) vial - multi-dose SQ SCH (21:37)
[2021-02-10 22:00] VITALS: BP 129/77
--- NOTE | 2021-02-10 22:17 | NUR ---
BS 426, GIVE [address] TAYLOR.
[2021-02-11 02:00] VITALS: BP 128/70
[2021-02-11 06:00] VITALS: BP 118/50
[2021-02-11 06:17] LABS: ALBUMIN 3.1 G/DL (3.4-5.0); ANION GAP 18 (8-16); BLOOD UREA NITROGEN 7 MG/DL (7-18); BUN/CREATININE RATIO 8.8 (6.6-38.0); CALCIUM 8.4 MG/DL (8.5-10.1); CHLORIDE 105 MMOL/L (99-107); GLUCOSE 262 MG/DL (70-104); POTASSIUM 4.6 MMOL/L (3.5-5.1); SODIUM 140 MMOL/L (135-145); TOTAL CARBON DIOXIDE 16.9 MMOL/L (24-32); eGFR 89 ML/MIN
[2021-02-11 06:25] LABS: BASOPHILS % (AUTO) 0.4 % (0-1); EOSINOPHILS % (AUTO) 0.2 % (0-6); HEMATOCRIT 33.1 % (35.0-45.0); HEMOGLOBIN 11.3 g/dl (12.0-16.0); LYMPHOCYTES # (AUTO) 2.3 X10'3 (1.1-4.8); LYMPHOCYTES % (AUTO) 21.4 % (21-51); MEAN CORPUSCULAR VOLUME 88.1 FL (78-98); MEAN PLATELET VOLUME 7.9 FL (7.4-10.4); MONOCYTES # (AUTO) 0.6 X10'3 (0-0.9); MONOCYTES % (AUTO) 5.9 % (2-12); NEUTROPHILS # (AUTO) 7.9 X10'3 (1.8-7.7); NEUTROPHILS % (AUTO) 72.1 % (42-75); PLATELET COUNT 318 X10'3 (140-440); RED BLOOD COUNT 3.76 X10'6 (4.20-5.60); WHITE BLOOD COUNT 10.9 X10'3 (4.5-11.0)
[2021-02-11] MEDS: K and/or MAG REPLACEMENT MC SCH (08:12)
[2021-02-11 08:41] LABS: ALBUMIN 3.2 G/DL (3.4-5.0); ANION GAP 16 (8-16); BLOOD UREA NITROGEN 9 MG/DL (7-18); BUN/CREATININE RATIO 10.3 (6.6-38.0); CALCIUM 8.3 MG/DL (8.5-10.1); CHLORIDE 103 MMOL/L (99-107); CREATININE 0.87 MG/DL (0.40-0.90); GLUCOSE 384 MG/DL (70-104); POTASSIUM 4.6 MMOL/L (3.5-5.1); SODIUM 138 MMOL/L (135-145); TOTAL CARBON DIOXIDE 19.5 MMOL/L (24-32); eGFR 81 ML/MIN
[2021-02-11] MEDS: insulin Lispro (HumaLOG) vial - multi-dose SQ SCH ×2 (09:51→10:19)
[2021-02-11] MEDS: docusate sod 100mg capsule PO SCH (10:02)
--- NOTE | 2021-02-11 11:15 | NUR ---
Diabetes consult: Pt admitted w/ DKA and BG of 658mg/dL per EMR A1c 8.7. Per MD note, pt ran out of insulin 1 day ago. Pt able to eat 50% of first meal on CCHO diet. LBM 02/10. Provided pt w/ verbal and written DM education w/ RD contact info, pt receptive of information. No nutrition intervention implemented at this time, will continue to monitor. Recs: 1. Continue CCHO diet as tolerated 2. Bowel care per rx 3. Scaled wt this admit, weekly wt thereafter Addendum: 02/11/21 at [address] Amended: Links added.
[2021-02-11] MEDS ORDERED: INSU100V40 SQ (12:59)
[2021-02-11 14:17] LABS: ALBUMIN 3.4 G/DL (3.4-5.0); ANION GAP 18 (8-16); BLOOD UREA NITROGEN 11 MG/DL (7-18); BUN/CREATININE RATIO 13.6 (6.6-38.0); CALCIUM 8.6 MG/DL (8.5-10.1); CHLORIDE 103 MMOL/L (99-107); CREATININE 0.81 MG/DL (0.40-0.90); GLUCOSE 215 MG/DL (70-104); POTASSIUM 3.8 MMOL/L (3.5-5.1); SODIUM 139 MMOL/L (135-145); TOTAL CARBON DIOXIDE 18.1 MMOL/L (24-32); eGFR 88 ML/MIN
--- NOTE | 2021-02-11 14:30 | NUR ---
Patient was educated on follow-up care, worsening symptoms, and medications. Two IV's were removed. Canula was intact on each. A1C was provided. Prescription was sent to [facility].
== END 2021-02-11 14:15 | disposition home or self-care (01) | DRG 420 ==
LOC: ER 04:57 → ED HOLD 07:59 → PCU 3S 02-10 22:35
PROVIDERS: ADMIT Family Medicine; ATTEND Family Medicine
DX: E13.10 Other specified diabetes mellitus with ketoacidosis without coma (principal); D72.823 Leukemoid reaction; F12.90 Cannabis use, unspecified, uncomplicated; F32.A Depression, unspecified; Z96.41 Presence of insulin pump (external) (internal); F41.9 Anxiety disorder, unspecified; Z79.4 Long term (current) use of insulin; Z80.1 Family history of malignant neoplasm of trachea, bronchus and lung; Z83.3 Family history of diabetes mellitus
CPT/HCPCS: 36415; 36600; 71045; 80048; 80053; 81001; 81025; 82009; 82800; 82803; 82948; 83036; 83605; 83735; 84100; 84145; 85018; 85025; 87040; 87081; 96361; 96365; 96366; 96375; 96376; 99285; G0378; J1815; J2405; J7030

== ENCOUNTER 2021-03-06 17:42 | Emergency (ER) | payer MEDICAID ==
[~2021-03-06] VITALS: Ht 167.6 cm; Wt 95.0 kg
[~2021-03-06 17:42] MED LIST changes: -BUPR150T8 PO; +INSU100V40 SQ; -ONDA8TAB13 PO; -PANT-47 PO; -SERT100T PO; -insulin pump
[2021-03-06 17:43] VITALS: BP 153/90
== END 2021-03-06 21:53 | disposition left against medical advice (07) ==
LOC: ER 17:42
DX: E16.2 Hypoglycemia, unspecified (principal); Z53.21 Procedure and treatment not carried out due to patient leaving prior to being seen by health care provider

== ENCOUNTER 2021-10-14 21:18 | Emergency (ER) | payer MEDICAID ==
[~2021-10-14] VITALS: Ht 162.6 cm; Wt 81.2 kg
[2021-10-14] MEDS ORDERED: normal saline 1000ml 1,000 ML IV ONE (23:10)
[2021-10-14] MEDS ORDERED: ketorolac trometh. 30mg/ml inj. IV ONE (23:10)
[2021-10-14] MEDS ORDERED: ondansetron/PF 4mg/2ml inj IV ONE (23:10)
[2021-10-15] MEDS ORDERED: famotidine/PF 10 mg/ml inj IV ONE (00:15)
[2021-10-15] MEDS ORDERED: normal saline 1000ml 1,000 ML IV ONE (00:15)
[2021-10-15] MEDS ORDERED: proCHLORperazine 10 MG/2 ml inj IV ONE (00:15)
[2021-10-15] MEDS ORDERED: PROM12.512 PO (00:58)
[2021-10-15] MEDS ORDERED: ONDA8TAB13 PO ×2 (00:58→02:09)
[2021-10-15 01:05] LABS: URINE HCG NEGATIVE (NEG)
[2021-10-15] MEDS ORDERED: PROM25SU9 RC (02:09)
[2021-10-15 02:43] VITALS: BP 115/51
== END 2021-10-15 02:50 | disposition home or self-care (01) ==
LOC: ER 21:19
DX: U07.1 COVID-19 (principal); E11.9 Type 2 diabetes mellitus without complications; F31.9 Bipolar disorder, unspecified; F12.10 Cannabis abuse, uncomplicated; Z79.899 Other long term (current) drug therapy
CPT/HCPCS: 81025; 96361; 96374; 96375; 99284; J0780; J1885; J2405; J3490; J7030

== ENCOUNTER 2021-10-15 13:05 | Emergency (ER) | payer MEDICAID ==
[~2021-10-15] VITALS: Ht 162.6 cm; Wt 86.0 kg
[~2021-10-15 13:05] MED LIST changes: +ONDA8TAB13 PO; +PROM12.512 PO; +PROM25SU9 RC
[2021-10-15] MEDS ORDERED: metoclopramide 5 mg/ml inj IV ONE (17:35)
[2021-10-15] MEDS ORDERED: ondansetron/PF 4mg/2ml inj IV ONE (17:35)
[2021-10-15] MEDS ORDERED: normal saline 1000ML IV soln IVB ONE (17:35)
[2021-10-15 18:03] LABS: BASOPHILS % (AUTO) 0.1 % (0-1); EOSINOPHILS % (AUTO) 0.2 % (0-6); HEMOGLOBIN 13.1 g/dl (12.0-16.0); LYMPHOCYTES # (AUTO) 2.3 X10'3 (1.1-4.8); LYMPHOCYTES % (AUTO) 24.6 % (21-51); MEAN CORPUSCULAR HGB CONC 33.6 g/dL (33.0-36.5); MEAN CORPUSCULAR VOLUME 86.5 FL (78-98); MEAN PLATELET VOLUME 8.2 FL (7.4-10.4); MONOCYTES % (AUTO) 10.2 % (2-12); NEUTROPHILS # (AUTO) 6.2 X10'3 (1.8-7.7); NEUTROPHILS % (AUTO) 64.9 % (42-75); PLATELET COUNT 294 X10'3 (140-440); RED BLOOD COUNT 4.51 X10'6 (4.20-5.60); WHITE BLOOD COUNT 9.5 X10'3 (4.5-11.0)
[2021-10-15 18:10] LABS: ALANINE AMINOTRANSFERASE 19 U/L (12-78); ALBUMIN 3.9 G/DL (3.4-5.0); ALBUMIN/GLOBULIN RATIO 1.1 (1.1-1.5); ALKALINE PHOSPHATASE 81 IU/L (46-116); ANION GAP 8 (8-16); ASPARTATE AMINO TRANSFERASE 23 U/L (10-37); BILIRUBIN,TOTAL 1.8 MG/DL (0.1-1.0); BLOOD UREA NITROGEN 13 MG/DL (7-18); BUN/CREATININE RATIO 15.3 (6.6-38.0); CALCIUM 9.1 MG/DL (8.5-10.1); CHLORIDE 109 MMOL/L (99-107); CREATININE 0.85 MG/DL (0.40-0.90); GLUCOSE 95 MG/DL (70-104); POTASSIUM 3.5 MMOL/L (3.5-5.1); SODIUM 147 MMOL/L (135-145); TOTAL CARBON DIOXIDE 29.6 MMOL/L (24-32); TOTAL PROTEIN 7.4 G/DL (6.4-8.2); eGFR 82 ML/MIN
[2021-10-15] MEDS ORDERED: dexamethasone sod phosphate 10mg/ml inj IV STA (18:22)
[2021-10-15] MEDS ORDERED: ringers solution, lacted 1,000 ML IV ONE (18:30)
[2021-10-15] MEDS ORDERED: scopolamine 1mg/72 hr patch TD ONE (18:30)
[2021-10-15 20:17] VITALS: BP 137/81
== END 2021-10-15 20:34 | disposition home or self-care (01) ==
LOC: ER 13:06
DX: U07.1 COVID-19 (principal); R11.2 Nausea with vomiting, unspecified; E86.0 Dehydration; F41.9 Anxiety disorder, unspecified; F32.9 Major depressive disorder, single episode, unspecified; F12.90 Cannabis use, unspecified, uncomplicated; Z72.89 Other problems related to lifestyle; Z79.4 Long term (current) use of insulin; Z79.899 Other long term (current) drug therapy
CPT/HCPCS: 36415; 80053; 82948; 85025; 96361; 96374; 96375; 99284; J1100; J2405; J2765; J7030; J7120